=== PATIENT | male | born 1955 | race Caucasian/White ===

== ENCOUNTER → 2018-05-31 | Outpatient (CLI) | payer MEDICARE ==
--- NOTE | 2018-05-31 10:18 | XR ---
EXAMINATION TYPE: XR foot complete RT, XR ankle complete RT DATE OF EXAM: 05/31/2018 CLINICAL HISTORY: Pain in the right ankle and foot at the metatarsal phalangeal joint after fall last week. TECHNIQUE: Frontal, lateral and oblique images of the right ankle and foot are obtained. COMPARISON: None. FINDINGS: There is no acute fracture/dislocation evident in the right ankle. The ankle mortise appe ars within normal limits. The overlying soft tissue appears unremarkable.There is no acute fracture or dislocation evident in the right foot. The joint spaces in the right foot are preserved. Overlyi ng soft tissue is unremarkable. There is redemonstration of an os peroneum and of an os naviculare. IMPRESSION: There is no acute fracture or dislocation in the right ankle or foot.
== END | disposition home or self-care (01) ==
LOC: RADXRYALE 09:07
PROVIDERS: ATTEND Physician Assistant Medical
DX: M25.571 Pain in right ankle and joints of right foot (principal)

== ENCOUNTER → 2020-01-17 | Outpatient (CLI) | payer MEDICARE ==
--- NOTE | 2020-01-17 15:23 | XR ---
EXAMINATION TYPE: XR chest 2V DATE OF EXAM: 01/17/2020 COMPARISON: NONE HISTORY: Cough TECHNIQUE: Frontal and lateral views of the chest are obtained. FINDINGS: There is no focal air space opacity, pleural effusion, or pneumothorax seen. The cardiac silhouette size is within normal limits. The osseous structures are intact. Mild multilevel degener ative change of the spine. IMPRESSION: No acute cardiopulmonary process.
== END | disposition home or self-care (01) ==
LOC: RADXRYALE 15:02
PROVIDERS: ATTEND Physician Assistant Medical
DX: R05 Cough (principal)
CPT/HCPCS: 71046

== ENCOUNTER → 2023-02-19 | Outpatient (CLI) | payer MEDICARE ==
--- NOTE | 2023-02-19 12:27 | XR ---
EXAMINATION TYPE: XR chest 2V DATE OF EXAM: 02/19/2023 11:35 AM COMPARISON: Chest radiographs from 01/17/2020 TECHNIQUE: XR chest 2V Frontal and lateral views of the chest. CLINICAL INDICATION:Male, 67 years old with history of [id number],[id number] COUGH,SOB; FINDINGS: Lungs/Pleura: There is no evidence of pleural effusion, focal consolidation, or pneumothorax. Pulmonary vascularity: Unremarkable. Heart/mediastinum: Cardiomediastinal silhouette is unremarkable. Musculoskeletal: No acute osseous pathology. IMPRESSION: No acute cardiopulmonary disease/process.
== END | disposition home or self-care (01) ==
LOC: RADXRYALE 11:26
PROVIDERS: ATTEND Physician Assistant
DX: R05.9 Cough, unspecified (principal); R06.02 Shortness of breath
CPT/HCPCS: 71046

== ENCOUNTER → 2023-03-31 | Outpatient (CLI) | payer MEDICARE ==
--- NOTE | 2023-03-31 12:12 | CA ---
Exercise Stress Test Report Name: Gene Dinh Exam Date: 03/31/2023 10:51 Exam Location: [place] Stress Ht (in): 66 Wt (lb): 160 BSA: 1.82 Ordering Phys: Jovanni José DO Referring Phys: Kelli Menchaca Technologist: Edin Gandara Age: 67 Gender: M : 1955 Procedure CPT: Indications: R42 R53.83 R20.8 ICD-10 Codes: Patient History: NUMBNESS FACE/NECK, HTN, FAMILY HX OF HEART DISEASE Medications: LISINOPRIL, PREET Meds past 24 hrs: Pretest Chest Pain: STRESS TEST Riaz Protocol Exercise Duration (min:sec): 10:[address] Depressions (mm): Angina Score: Smith Score: Resting HR (bpm): 65 Peak HR (bpm): 157 Resting BP (mmHg): 148 / 92 Peak BP (mmHg): 190 / 82 MPHR: 151 Target HR: 128 % MPHR: 104 METS: 11.7 Total Dose: Peak Dose: Atropine: Double Product: 82720 BP Response: Stress Termination: MAX EXERTION/TARGET HR Stress Symptoms: NO SYMPTOMS Stress Summary: ECG ANALYSIS Resting ECG: Stress ECG: CONCLUSIONS Baseline EKG revealed normal sinus rhythm without significant ST-T changes. Patient walked on a standard Riaz protocol for 10 minutes and achieved a maximum heart rate of 157 bpm which is more than 85% of his predicted maximal. The resting blood pressure was 148/90 and peak blood pressure was 190/82. Patient was asymptomatic. EKG did not reveal any ST segment changes to indicate ischemia. Rare isolated PVC was noted. This is a negative stress test with excellent exercise capacity with no evidence of ischemia Dr. Yoel Small MD (Electronically Signed) Final Date: 31 Mar 2023 12:11
== END | disposition home or self-care (01) ==
LOC: RADNMMAIN 10:23
PROVIDERS: ATTEND Family Medicine
DX: R42 Dizziness and giddiness (principal); R53.83 Other fatigue; R20.8 Other disturbances of skin sensation
CPT/HCPCS: 93017